=== PATIENT | male | born 1940 | race Caucasian/White ===

== ENCOUNTER 2017-01-27 23:52 | Emergency (ER) | payer MEDICARE, OTHER ==
--- NOTE | ~2017-01-27 | CT57 ---
[facility] A Service of [facility] & [facility] RADIOLOGY TEXT RESULTS PATIENT: ANUP DEJESUS LOCATION: [facility] : 44 UNIT #: [id number] AGE: [address]: Nuno Ibarra DO SEX: M ORDER DR: [id number] [facility] [address] [place], [place] [address] [id number] E MR#: [id number] Acc #: [id number] NAME: ANUP DEJESUS. : 1940 SEX: M STUDY DATE/TIME: 01/27/2017 23:18 UNIT: [facility] ROOM: STUDY DESCRIPTION: CT Chest Wo Cont Attending Physician: Nuno Ibarra D.O. Ordering Physician: Nuno Ibarra D.O. Primary Care Physician: Cristiano Odonnell M.D. MEDICAL IMAGING REPORT This report is preliminary unless electronic signature is present EXAM CT of the chest without contrast 01/27/2017 HISTORY 76-year-old male found down tonight after falling down a flight of stairs at home. Confusion. Laceration of the head. Chest and neck pain. Right neck and shoulder pain. Posterior headache. COMPARISON PA and lateral chest 06/26/2013. No prior CT chest at this institution for comparison. PROCEDURE 5 mm noncontrast axial images through the chest. Sagittal and coronal reformatted images were obtained. This CT examination was performed with one or more of the following radiation dose reduction techniques: automatic exposure control, adjustment of mA and/or kV according to patient size, and iterative reconstruction. FINDINGS There is a minimally displaced fracture of the proximal right clavicle. Suspected fracture of the [id number]-bd-[id number] right clavicular shaft, not completely included in the imaging field of view for this examination. There is extensive right anterior chest wall soft tissue swelling. No displaced right rib fracture is identified, however. There is no pneumothorax. No mediastinal hematoma is seen. There is moderate cardiac enlargement. The descending thoracic aorta is borderline aneurysmal at 3 cm. Mild coronary artery calcifications are present. Moderately advanced emphysematous changes are present. Evaluation of the lungs limited due to obscuration by respiratory motion. No acute airspace disease is seen. Benign calcified granulomatous changes within both lungs. Small nonobstructing left renal stone. Remainder of the included upper STS. [facility] A Service of [facility] RADIOLOGY TEXT RESULTS PATIENT: ANUP DEJESUS LOCATION: [facility] : 42 UNIT #: [id number] AGE: [address]: Nuno Ibarra DO SEX: M ORDER DR: abdominal organs within normal limits. IMPRESSION 1. Nondisplaced fracture of the proximal right clavicle. Suspected fracture of the distal right clavicle, not completely included in imaging field view on this examination. 2. Extensive right upper anterior chest soft tissue swelling. 3. No pneumothorax or acute airspace disease. 4. Moderately advanced emphysematous changes with benign calcified granulomatous changes in the chest. 5. 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 6. Moderate cardiomegaly. 7. Small nonobstructing left renal stone. Dictated by... Velma Canseco M.D. THIS IS AN ELECTRONICALLY VERIFIED REPORT Velma Canseco M.D. at 01/29/2017 10:02 PM LAQUITA/simon TD: 01/28/2017 06:11 JOB #: [id number] MEDICAL IMAGING REPORT Page 1 of 1 COPY
--- NOTE | ~2017-01-27 | EKG ---
PATIENT: ANUP DEJESUS UNIT #: [id number] Ventricular Rate: 64 BPM Atrial Rate: 64 BPM P-R Interval: 174 ms QRS Duration: 94 ms Q-T Interval: 476 ms QTC Calculation(Bezet): 491 ms P Dorrance: 62 degrees Calculated R Dorrance: 57 degrees Calculated T Dorrance: 75 degrees Diagnosis Line: Normal sinus rhythm Diagnosis Line: Possible Left atrial enlargement Diagnosis Line: Left ventricular hypertrophy Diagnosis Line: Prolonged QT Diagnosis Line: Abnormal ECG Diagnosis Line: When compared with ECG of 14-JUN-2011 16:29, Diagnosis Line: QT has lengthened Diagnosis Line: Confirmed by SHANE WHITMORE MD ([id number]) on Diagnosis Line: 01/29/2017 4:31:46 PM INTERPRETING MD: HAIM LOYA
--- NOTE | ~2017-01-27 | CT71 ---
[facility] A Service of [facility] RADIOLOGY TEXT RESULTS PATIENT: ANUP DEJESUS LOCATION: [facility] : 44 UNIT #: [id number] AGE: [address]: Nuno Ibarra DO SEX: M ORDER DR: [id number] [facility] [address] [place], [place] [address] [id number] E MR#: [id number] Acc #: [id number] NAME: ANUP DEJESUS. : 1940 SEX: M STUDY DATE/TIME: 01/27/2017 23:12 UNIT: [facility] ROOM: STUDY DESCRIPTION: CT Head Wo Contrast Attending Physician: Nuno Ibarra D.O. Ordering Physician: Nuno Ibarra D.O. Primary Care Physician: Cristiano Odonnell M.D. MEDICAL IMAGING REPORT This report is preliminary unless electronic signature is present EXAM Noncontrast CT head 01/27/2017 HISTORY 76-year-old male who fell down a flight of stairs at home today, found down. Laceration to head. Right shoulder and neck pain. Posterior headache. COMPARISON None. PROCEDURE This CT examination was performed with one or more of the following radiation dose reduction techniques: automatic exposure control, adjustment of mA and/or kV according to patient size, and iterative reconstruction. FINDINGS 2.3 x 0.8 cm right parietal scalp hematoma is seen with marked right parietal scalp soft tissue swelling. A tiny amount of subarachnoid hemorrhage is seen within the left parietal lobe sulci, and within high right frontal lobe sulcus. Questionable focus of hemorrhage within the parenchyma in the high right frontal parietal lobe near the vertex suggestive of axonal injury. No midline shift. Ventricular configuration within normal limits. Not mentioned above, questionable focus of subarachnoid blood in the left frontal lobe sulci. No displaced calvarial fracture is evident. Major paranasal sinuses and mastoid air cells are clear with the exception of minimal left sphenoid sinus mucosal thickening. No displaced calvarial fracture is evident. IMPRESSION 1. Scattered foci of subarachnoid hemorrhage within the sulci in the high [facility] A Service of [facility] RADIOLOGY TEXT RESULTS PATIENT: ANUP DEJESUS LOCATION: [facility] : 44 UNIT #: [id number] AGE: [address]: Nuno Ibarra DO SEX: M ORDER DR: right frontal lobe near the vertex, the left parietal lobe, and questionably within the left frontal lobe. 2. There are 2 tiny foci of parenchymal density in the high right frontal parietal lobe near the vertex which may represent changes of axonal injury. 3. Marked right parietal scalp soft tissue swelling with 2.3 cm right parietal scalp hematoma. 4. No evidence of acute or evolving infarct or midline shift. Dictated by... Velma Canseco M.D. THIS IS AN ELECTRONICALLY VERIFIED REPORT Velma Canseco M.D. at 01/29/2017 10:02 PM LAQUITA/simon TD: 01/28/2017 05:58 JOB #: [id number] MEDICAL IMAGING REPORT Page 1 of 1 COPY
--- NOTE | ~2017-01-27 | CT52 ---
[facility] A Service of [facility] & [facility] RADIOLOGY TEXT RESULTS PATIENT: ANUP DEJESUS LOCATION: [facility] : 44 UNIT #: [id number] AGE: [address]: Nnuo Ibarra DO SEX: M ORDER DR: [id number] [facility] [address] [place], [place] [address] [id number] E MR#: [id number] Acc #: [id number] NAME: ANUP DEJESUS. : 1940 SEX: M STUDY DATE/TIME: 01/27/2017 23:16 UNIT: [facility] ROOM: STUDY DESCRIPTION: CT Cervical Spine Wo Cont Attending Physician: Nuno Ibarra D.O. Ordering Physician: Nuno Ibarra D.O. Primary Care Physician: Cristiano Odonnell M.D. MEDICAL IMAGING REPORT This report is preliminary unless electronic signature is present EXAM CT cervical spine without contrast 01/27/2017 HISTORY Fell down a flight of stairs at home today. Found down. Right neck and shoulder pain. Posterior headache. Chest pain. Confusion. Laceration to the head. COMPARISON None. PROCEDURE 2 mm noncontrast axial images through the cervical spine. Sagittal and coronal reformatted images were obtained. This CT examination was performed with one or more of the following radiation dose reduction techniques: automatic exposure control, adjustment of mA and/or kV according to patient size, and iterative reconstruction. FINDINGS No acute cervical spine fracture or acute subluxation is seen. Craniocervical junction is intact. Moderately advanced diminished disc height is present at C3-4, C5-6, C6-7. Craniocervical junction is intact. Advanced multilevel degenerative changes are present. At C2-3, there is severe left facet arthropathy, mild posterior disc osteophyte formation, mild right facet arthropathy. There is moderate to severe left neural foraminal narrowing, mild to moderate right neural foramen narrowing, borderline canal stenosis. At C3-4, there is severe left facet arthropathy, mild right facet arthropathy, broad-based posterior disc osteophyte formation. There is severe left neural foraminal narrowing, [id number] right neural foraminal narrowing, borderline canal stenosis. [facility] A Service of [facility] & [facility] RADIOLOGY TEXT RESULTS PATIENT: ANUP DEJESUS LOCATION: [facility] : 42 UNIT #: [id number] AGE: [address]: Nuno Ibarra DO SEX: M ORDER DR: At C4-5, there is moderate to severe left greater than right facet arthropathy with broad based posterior disc osteophyte formation and bilateral uncovertebral spurring. There is moderate canal stenosis, moderate to severe right, moderate left neural foraminal narrowing. At C5-6, there is marked broad based posterior disc osteophyte formation and uncovertebral spurring with moderate bilateral facet arthropathy. There is moderate canal stenosis, [id number] left, moderate right neural foraminal narrowing. At C6-7, broad-based posterior disc osteophyte formation is present with bilateral uncovertebral spurring, moderate right, mild left facet arthropathy. There is mild canal stenosis, moderate right, mild to moderate left neural foraminal narrowing. A C7-T1, there is [id number]-vm-[id number] bilateral facet arthropathy but no significant canal or foraminal stenosis is seen. There is soft tissue swelling over the right lower neck anteriorly. IMPRESSION 1. Severe degenerative changes of the cervical spine as described in detail in the report. No acute cervical spine fracture or acute subluxation is seen. 2. Right lower anterior neck soft tissue swelling. Dictated by... Velma Canseco M.D. THIS IS AN ELECTRONICALLY VERIFIED REPORT Velma Canseco M.D. at 01/29/2017 10:02 PM LAQUITA/simon TD: 01/28/2017 06:03 JOB #: [id number] MEDICAL IMAGING REPORT Page 1 of 1 COPY
[2017-01-27 22:58] LABS: BASOPHIL% 0.2 % (0-2.5); HEMATOCRIT 39.2 % (38.0-50.0); HEMOGLOBIN 12.6 gm/dL (13.0-16.0); LYMPHOCYTE% 6.9 % (17.0-45.0); MEAN CELL VOLUME 79.7 FL (83-96); MEAN CORPUSCULAR HEMOGLOBIN 25.6 PG (28-34); MEAN CORPUSCULAR HGB CONC 32.1 g/dL (30-36); MONOCYTE# 0.6 X10e3 (0-1.0); MONOCYTE% 4.4 % (3.0-12.0); NEUTROPHIL# 12.4 X10e3 (1.5-7.1); NEUTROPHIL% 88.5 % (40-75); PLATELET COUNT 382 X10e3 (140-420); RED BLOOD COUNT 4.92 X10e (3.90-5.60); RED CELL DISTRIBUTION WIDTH 18.9 % (11.0-15.5)
[2017-01-27 22:59] LABS: DIFF IND NO
[2017-01-27 23:05] LABS: POC - CKMB 3.6 ng/mL (0.0-7.9); POC - TROPONIN <0.05 ng/mL (<=0.05)
[2017-01-27 23:18] LABS: PARTIAL THROMBOPLASTIN TIME 44.1 SECONDS (23.5-31.3); PROTHROMBIN TIME (PATIENT) 21.4 SECONDS (9.6-11.5)
[2017-01-27 23:22] LABS: ALBUMIN SERUM 3.1 g/dL (3.5-5.0); ALKALINE PHOSPHATASE 69 U/L (32-92); ALT (SGPT) 26 U/L (10-40); AST (SGOT) 23 U/L (10-42); BILIRUBIN,TOTAL 0.5 mg/dL (0.2-2.0); BLOOD UREA NITROGEN 16 mg/dL (9-23); BUN/CREATININE RATIO 22.85; CALCIUM SERUM 8.4 mg/dL (8.4-10.2); CARBON DIOXIDE 26 mmol/L (22-31); CHLORIDE 98 mmol/L (100-111); CREATININE SERUM 0.7 mg/dL (0.6-1.4); GLUCOSE FASTING 156 mg/dL (70-110); POTASSIUM 4.2 mmol/L (3.5-5.1); PROTEIN TOTAL SERUM 7.3 g/dL (6.0-8.3); SALICYLATE <4.0 mg/dL; SODIUM 133 mmol/L (135-145)
[2017-01-27 23:23] LABS: ACETAMINOPHEN <10 ug/mL; ALCOHOL BLOOD <5 mg/dL (0)
[~2017-01-27 23:52] MED LIST: CENTRUM SILVER PO; FISH OIL 1,2001 CAP PO; PRADAXA150 MG PO; SIMVASTATIN80 MG PO; TOPROL XL PO; VITAMIN E200 UNI1 PO
== END 2017-01-28 01:30 | disposition hospice, home (50) ==
LOC: CED 23:52
PROVIDERS: Emergency Medicine
DX: S42.017A Nondisplaced fracture of sternal end of right clavicle, initial encounter for closed fracture (principal); E78.5 Hyperlipidemia, unspecified; I48.91 Unspecified atrial fibrillation; W01.198A Fall on same level from slipping, tripping and stumbling with subsequent striking against other object, initial encounter; Y92.009 Unspecified place in unspecified non-institutional (private) residence as the place of occurrence of the external cause
CPT/HCPCS: 36415; 70450; 71250; 72125; 80053; 82553; 84484; 85025; 85610; 85730; 86850; 86900; 86901; 93005; 96365; 99291; C9132; G0480; J3430